=== PATIENT | female | born 1955 | race Caucasian/White ===

== ENCOUNTER 2016-09-11 16:03 | Emergency (ER) | payer MEDICAID ==
[~2016-09-11] VITALS: Ht 170.2 cm; Wt 68.3 kg
[~2016-09-11 16:03] MED LIST: CEPH-368 PO; CYCL-259 PO; DIAZ10TA4 PO; DICL112S2 PO; GABA600T2 PO; HYDR-3144 PO; HYDR-3241 PO; LISI-170 PO; NAPR500T PO; PANT20TA3 PO
[2016-09-11 16:13] VITALS: BP 130/85
[2016-09-11] MEDS ORDERED: CEFTRIAXONE 1,000 MG IM ONE (16:30)
[2016-09-11] MEDS ORDERED: FAMOTIDINE 20 MG TABLET PO ONE (16:30)
[2016-09-11] MEDS ORDERED: DIPHENHYDRAMINE 25 MG CAPSULE PO ONE (16:30)
[2016-09-11] MEDS ORDERED: DIPHENHYDRAMINE 25 MG CAPSULE ONE (16:38)
[2016-09-11] MEDS ORDERED: FAMOTIDINE 20 MG TABLET ONE (16:39)
[2016-09-11] MEDS ORDERED: CEFTRIAXONE 1,000 MG ONE (16:39)
== END 2016-09-11 17:10 | disposition home or self-care (01) ==
LOC: ED 16:33
DX: S50.361A Insect bite (nonvenomous) of right elbow, initial encounter (principal); I10 Essential (primary) hypertension; K21.9 Gastro-esophageal reflux disease without esophagitis; F17.200 Nicotine dependence, unspecified, uncomplicated; G89.29 Other chronic pain; W57.XXXA Bitten or stung by nonvenomous insect and other nonvenomous arthropods, initial encounter; Y93.89 Activity, other specified; Y92.098 Other place in other non-institutional residence as the place of occurrence of the external cause; Y99.8 Other external cause status
CPT/HCPCS: 96372; 99283; J0696; Q0163

== ENCOUNTER 2016-11-14 15:02 | Emergency (ER) | payer MEDICAID ==
[~2016-11-14] VITALS: Ht 167.6 cm; Wt 66.7 kg
[~2016-11-14 15:02] MED LIST changes: -HYDR-3144 PO; +HYDR-3245 PO
[2016-11-14 15:05] VITALS: BP 106/71
[2016-11-14] MEDS ORDERED: HYDR-882 PO (15:35)
== END 2016-11-14 16:37 | disposition home or self-care (01) ==
LOC: ED 16:33
DX: S30.0XXA Contusion of lower back and pelvis, initial encounter (principal); M51.16 Intervertebral disc disorders with radiculopathy, lumbar region; M54.9 Dorsalgia, unspecified; G89.29 Other chronic pain; G40.909 Epilepsy, unspecified, not intractable, without status epilepticus; I10 Essential (primary) hypertension; K21.9 Gastro-esophageal reflux disease without esophagitis; W19.XXXA Unspecified fall, initial encounter; Y99.8 Other external cause status; Y93.89 Activity, other specified; Y92.89 Other specified places as the place of occurrence of the external cause
CPT/HCPCS: 72110; 99284

== ENCOUNTER 2017-04-09 13:58 | Emergency (ER) | payer MEDICAID ==
[~2017-04-09] VITALS: Ht 167.6 cm; Wt 63.7 kg
[~2017-04-09 13:58] MED LIST changes: +HYDR-882 PO; +METH500T97 PO; +NAPR-856 PO; -NAPR500T PO
[2017-04-09 14:01] VITALS: BP 124/82
[2017-04-09 17:25] LABS: MICROSCOPIC AUTO
[2017-04-09 17:26] LABS: CULTURE INDICATED? YES
== END 2017-04-09 18:33 | disposition home or self-care (01) ==
LOC: ED 16:07
DX: R30.0 Dysuria (principal); F17.200 Nicotine dependence, unspecified, uncomplicated
CPT/HCPCS: 76830; 81001; 87077; 87086; 87186; 99285

== ENCOUNTER 2019-05-09 07:08 | Outpatient (CLI) | payer MEDICARE, MEDICAID ==
[~2019-05-09 07:08] MED LIST changes: +BACL-19 PO; +FEXO60TA24 PO; -GABA600T2 PO; +GABA600T7 PO; +HYDR-3653 PO; -HYDR-882 PO; +OXYC-307 PO
== END 2019-05-09 23:59 | disposition home or self-care (01) ==
LOC: ROC 07:08
PROVIDERS: ATTEND Radiology Radiation Oncology
DX: C77.0 Secondary and unspecified malignant neoplasm of lymph nodes of head, face and neck (principal); Z87.891 Personal history of nicotine dependence
CPT/HCPCS: 99214; G0463

== ENCOUNTER → 2019-05-22 | Outpatient (CLI) | payer MEDICARE, MEDICAID | END | disposition home or self-care (01) | LOC: PETCFH 13:24 | PROVIDERS: ATTEND Radiology Radiation Oncology | DX: C77.0 Secondary and unspecified malignant neoplasm of lymph nodes of head, face and neck (principal) | CPT/HCPCS: 78815; A9552 ==

== ENCOUNTER 2019-05-28 17:12 | Emergency (ER) | payer MEDICAID, MEDICARE ==
[~2019-05-28] VITALS: Ht 165.1 cm; Wt 58.5 kg
--- NOTE | 2019-05-28 17:33 | NUR ---
[employer] APPLIED. O2 2LNC APPLIED. PT STATES SHE PASSED OUT AT [facility] LAST WEEK.
--- NOTE | 2019-05-28 17:35 | NUR ---
PT ENDORSED TO BREAK RN
[2019-05-28] MEDS ORDERED: HYDROmorphone 1 MG/ML, 1ML INJ IVPush PRN (18:00)
[2019-05-28] MEDS ORDERED: SODIUM CHLORIDE FLUSH 10ML SYR IVF ONE (18:00)
[2019-05-28] MEDS ORDERED: ONDANSETRON 2MG/ML, 2ML IVPush ONE (18:00)
--- NOTE | 2019-05-28 18:12 | NUR ---
PT REPORT FROM JULIANA STORM RN. PT CARE TO BE ASSUMED.
[2019-05-28 18:16] LABS: BASOPHILS # (AUTO) 0.02 x10^3/uL (0-0.1); BASOPHILS % (AUTO) 0 % (0-1); EOSINOPHILS # (AUTO) 0.15 x10^3/uL (0-0.4); EOSINOPHILS % (AUTO) 2 % (1-7); LYMPHOCYTES % (AUTO) 30 % (22-44); MD NO; MEAN CORPUSCULAR HGB CONC 33.5 g/dL (32.4-35.8); MEAN CORPUSCULAR VOLUME 101.6 fL (80-100); MONOCYTES # (AUTO) 0.67 x10^3/uL (0.2-0.8); MONOCYTES % (AUTO) 10 % (2-9); NEUTROPHILS # (AUTO) 4.14 x10^3/uL (1.8-6.8); NEUTROPHILS % (AUTO) 58 % (42-75); PLATELET COUNT 265 x10^3/uL (130-400); RED BLOOD COUNT 3.96 x10^6/uL (3.82-5.3); RED CELL DISTRIBUTION WIDTH 14.7 % (9.6-15.2)
[2019-05-28] MEDS ORDERED: HYDROmorphone 1 MG/ML, 1ML INJ ONE (18:21)
[2019-05-28] MEDS ORDERED: ONDANSETRON 2MG/ML, 2ML ONE (18:21)
[2019-05-28 18:25] LABS: ALANINE AMINOTRANSFERASE 13 U/L (12-78); ALBUMIN 3.4 g/dL (3.4-5.0); ANION GAP 6 mmol/L (5-15); CALCIUM 8.7 mg/dL (8.5-10.1); CHLORIDE 99 mmol/L (98-107)
[2019-05-28 18:28] LABS: ALKALINE PHOSPHATASE 68 U/L (45-117); BILIRUBIN,TOTAL 0.3 mg/dL (0.2-1.0); CREATININE 0.66 mg/dL (0.55-1.02); TOTAL PROTEIN 6.8 g/dL (6.4-8.2)
--- NOTE | 2019-05-28 18:30 | NUR ---
ZOFRAN AND DILAUDID GIVEN PER EMAR. SEIZURE PADS ON RAILS.
[2019-05-28] MEDS ORDERED: OMNIPAQUE 350 MG/ML, 100ML BOTTLE ONE (19:03)
[2019-05-28] MEDS ORDERED: POTASSIUM CHLORIDE 20 MEQ TAB.ER.PRT ONE (19:58)
[2019-05-28] MEDS ORDERED: LEVETIRACETAM 1,000 MG in SODIUM CHLORIDE 0.9% 100 ML IV ONE (20:00)
[2019-05-28] MEDS ORDERED: POTASSIUM CHLORIDE 20 MEQ TAB.ER.PRT PO ONE (20:00)
--- NOTE | 2019-05-28 20:08 | NUR ---
AMBULATORY TO & FROM [facility] W/OUT INCIDENT; GAIT STEADY; ACCOMPANIED BY THIS RN.
--- NOTE | 2019-05-28 20:20 | NUR ---
MICKEY CAR, INFUSING AT 440ML/HR VIA PUMP. IV SITE PATENT. PT SITTING COMFORTABLY ON BED WATCHING TV, SIDE RAILS UP W/ SEIZURE PADS.
[2019-05-28] MEDS ORDERED: [UNRECOGNIZED DRUG - OTHER] (20:53)
[2019-05-28] MEDS ORDERED: BUPR100T11 PO (20:53)
[2019-05-28] MEDS ORDERED: ALEN70TA6 PO (20:53)
[2019-05-28] MEDS ORDERED: CALCIUM (20:53)
[2019-05-28] MEDS ORDERED: ALBU18HF NAS (20:58)
[2019-05-28] MEDS ORDERED: OMEP40CA42 PO (20:58)
[2019-05-28] MEDS ORDERED: FLUT9.9S NAS (20:58)
[2019-05-28] MEDS ORDERED: oxycodone PO (20:58)
[2019-05-28] MEDS ORDERED: TIZA4TAB2 PO (20:58)
[2019-05-28] MEDS ORDERED: METH8TAB5 PO (20:58)
[2019-05-28] MEDS ORDERED: NAPR-685 PO (20:58)
[2019-05-28 21:00] VITALS: BP 113/74
== END 2019-05-28 21:34 | disposition home or self-care (01) ==
LOC: ED 19:39
DX: G40.409 Other generalized epilepsy and epileptic syndromes, not intractable, without status epilepticus (principal); I89.8 Other specified noninfective disorders of lymphatic vessels and lymph nodes; I10 Essential (primary) hypertension; K21.9 Gastro-esophageal reflux disease without esophagitis; G89.29 Other chronic pain; Z87.891 Personal history of nicotine dependence
CPT/HCPCS: 36415; 70460; 70487; 71045; 80053; 83605; 85025; 93005; 96365; 96375; 99285; J1170; J1953; J2405; Q9967; 96374

== ENCOUNTER 2019-06-08 11:12 | Outpatient (CLI) | payer MEDICARE, MEDICAID ==
[~2019-06-08 11:12] MED LIST changes: +ALBU18HF NAS; +ALEN70TA6 PO; +BUPR100T11 PO; +CALCIUM; +FLUT9.9S NAS; +METH8TAB5 PO; +NAPR-685 PO; +OMEP40CA42 PO; +TIZA4TAB2 PO; +[UNRECOGNIZED DRUG - OTHER]; +oxycodone PO
== END 2019-06-08 23:59 | disposition home or self-care (01) ==
LOC: RAD 11:12
PROVIDERS: ATTEND Radiology Radiation Oncology
DX: Z02.9 Encounter for administrative examinations, unspecified (principal)

== ENCOUNTER 2019-06-11 11:50 | Outpatient (CLI) | payer MEDICARE, MEDICAID ==
[2019-06-11] MEDS ORDERED: MIDAZOLAM 1 MG/ML, 5ML ONE (12:32)
[2019-06-11] MEDS ORDERED: FENTANYL PF 100 MCG/2ML ONE (12:32)
[2019-06-11] MEDS ORDERED: NALOXONE 1 MG/ML, 2ML ONE (13:04)
[2019-06-11] MEDS ORDERED: FLUMAZENIL 0.1 MG/1 ML, 5ML ONE (13:08)
== END 2019-06-11 23:59 | disposition home or self-care (01) ==
LOC: RAD 11:50
PROVIDERS: ATTEND Radiology Radiation Oncology
DX: C77.0 Secondary and unspecified malignant neoplasm of lymph nodes of head, face and neck (principal); I10 Essential (primary) hypertension; J45.909 Unspecified asthma, uncomplicated; Z87.891 Personal history of nicotine dependence; Z99.81 Dependence on supplemental oxygen
CPT/HCPCS: 70543; 99156; 99157; J2250; J3010; J2310

== ENCOUNTER → 2019-07-27 | Outpatient (CLI) | payer MEDICARE, MEDICAID ==
[~2019-07-27] MED LIST changes: +BENZ100C PO; +DOCU100C33 PO; +GABA800T5 PO; +IBUP-1223 PO; +LEVE500T53 PO; +LISI10TA2 PO; +MORP-52 PO; +OXYC10TA6 PO
== END | disposition home or self-care (01) ==
LOC: CFH 11:12 → EDSTATUS 13:00
PROVIDERS: ATTEND Internal Medicine
DX: R22.43 Localized swelling, mass and lump, lower limb, bilateral (principal); C76.0 Malignant neoplasm of head, face and neck
CPT/HCPCS: 93970